=== PATIENT | female | born 1975 | race Two or more races ===

== ENCOUNTER 2018-11-04 18:44 | Emergency (ER) | payer MEDICARE, MEDICAID ==
[~2018-11-04] VITALS: Ht 162.6 cm; Wt 104.0 kg
[2018-11-04 20:26] VITALS: BP 131/97
== END 2018-11-04 20:27 | disposition home or self-care (01) ==
LOC: ER 18:44
DX: M54.5 Low back pain (principal)
CPT/HCPCS: 99283

== ENCOUNTER 2021-03-28 05:20 | Emergency (ER) | payer MEDICAID, MEDICARE ==
[~2021-03-28] VITALS: Ht 162.6 cm; Wt 102.0 kg
[2021-03-28] MEDS ORDERED: IBUP-2028 MT (07:03)
[2021-03-28] MEDS ORDERED: AMOX-494 MT (07:06)
[2021-03-28] MEDS ORDERED: IBUPROFEN 600MG TABLET PO ONE (07:15)
[2021-03-28 07:31] VITALS: BP 148/92
== END 2021-03-28 07:33 | disposition home or self-care (01) ==
LOC: ER 05:20
DX: K08.89 Other specified disorders of teeth and supporting structures (principal)
CPT/HCPCS: 99283

== ENCOUNTER 2021-05-21 22:55 | Emergency (ER) | payer MEDICAID ==
[~2021-05-21] VITALS: Ht 162.6 cm; Wt 109.0 kg
[~2021-05-21 22:55] MED LIST: AMOX-494 MT; IBUP-2028 MT
[2021-05-22 00:11] LABS: CLARITY URINE CLEAR (CLEAR); COLOR URINE YELLOW (YELLOW); KETONES URINE NEGATIVE (NEGATIVE); LEUKOCYTE ESTERASE URINE 2+ (NEGATIVE); NITRITE URINE NEGATIVE (NEGATIVE); OCCULT BLOOD URINE NEGATIVE (NEGATIVE); PROTEIN URINE NEGATIVE (NEGATIVE); SPECIFIC GRAVITY URINE 1.025 (1.005-1.030); UROBILINOGEN URINE 0.2 E.U./dL (0.2-1.0)
[2021-05-22] MEDS ORDERED: CEFTRIAXONE SODIUM 500 MG/VIAL IM SCH (01:31)
[2021-05-22] MEDS ORDERED: LIDOCAINE HCL 1% 10 MG/ML 10ML VIAL IJ SCH (01:45)
[2021-05-22] MEDS ORDERED: METR-167 PO (01:48)
[2021-05-22] MEDS ORDERED: DOXY-326 PO (01:48)
[2021-05-22 02:00] VITALS: BP 122/78
[2021-05-25 04:09] LABS: NEISSERIA GONORRHOEAE NAA Negative (Negative)
== END 2021-05-22 02:00 | disposition home or self-care (01) ==
LOC: ER 22:55
DX: N76.0 Acute vaginitis (principal); N72 Inflammatory disease of cervix uteri; Z87.828 Personal history of other (healed) physical injury and trauma
CPT/HCPCS: 81003; 81025; 87086; 87210; 87491; 87591; 96372; 99283; J0696; J3490; Z7610

== ENCOUNTER 2023-03-19 09:23 | Emergency (ER) | payer MEDICAID, OTHER ==
[~2023-03-19] VITALS: Ht 165.1 cm; Wt 105.0 kg
[~2023-03-19 09:23] MED LIST changes: +DOXY-456 PO; +METR-167 PO
[2023-03-19 09:42] VITALS: BP 131/78; PULSE 92; RESP 16; TEMP 98.6; O2SAT 100
[2023-03-19] MEDS ORDERED: CETI10TA6 PO (10:37)
[2023-03-19] MEDS ORDERED: HYDR453.3 TP (10:37)
== END 2023-03-19 11:01 | disposition home or self-care (01) ==
LOC: ER 09:23
DX: S50.862A Insect bite (nonvenomous) of left forearm, initial encounter (principal); S50.861A Insect bite (nonvenomous) of right forearm, initial encounter; E11.9 Type 2 diabetes mellitus without complications; W57.XXXA Bitten or stung by nonvenomous insect and other nonvenomous arthropods, initial encounter; Y93.89 Activity, other specified; Y92.89 Other specified places as the place of occurrence of the external cause; Y99.8 Other external cause status
CPT/HCPCS: 99282

== ENCOUNTER 2023-07-31 09:21 | Emergency (ER) | payer MEDICAID, OTHER ==
[~2023-07-31] VITALS: Ht 162.6 cm; Wt 105.0 kg
[~2023-07-31 09:21] MED LIST changes: +CETI10TA6 PO; +HYDR453.3 TP
[2023-07-31 09:37] VITALS: BP 108/83; PULSE 80; RESP 16; TEMP 98.2; O2SAT 100
== END 2023-07-31 10:11 | disposition home or self-care (01) ==
LOC: ER 09:21
DX: T19.2XXA Foreign body in vulva and vagina, initial encounter (principal); E11.9 Type 2 diabetes mellitus without complications; X58.XXXA Exposure to other specified factors, initial encounter; Y93.89 Activity, other specified; Y92.89 Other specified places as the place of occurrence of the external cause; Y99.8 Other external cause status
CPT/HCPCS: 81025; 99282

== ENCOUNTER 2023-11-18 17:50 | Emergency (ER) | payer OTHER ==
[~2023-11-18] VITALS: Ht 162.6 cm; Wt 107.0 kg
[2023-11-18 18:00] VITALS: BP 141/85; PULSE 83; RESP 18; TEMP 98.5; O2SAT 98
[2023-11-18] MEDS ORDERED: NAPR500T7 MT (19:47)
[2023-11-18] MEDS ORDERED: LIDO1ADH7 TP (19:47)
== END 2023-11-18 20:14 | disposition home or self-care (01) ==
LOC: ER 17:50
DX: M25.562 Pain in left knee (principal); E11.9 Type 2 diabetes mellitus without complications; Z79.899 Other long term (current) drug therapy
CPT/HCPCS: 99281

== ENCOUNTER 2024-11-14 19:54 | Emergency (ER) | payer OTHER ==
[~2024-11-14] VITALS: Ht 162.6 cm; Wt 112.0 kg
[~2024-11-14 19:54] MED LIST changes: -DOXY-456 PO; +DOXY-461 PO; +LIDO1ADH7 TP; +NAPR-1486 MT
[2024-11-14 20:00] VITALS: O2SAT 100
[2024-11-14] MEDS: KETOROLAC 30MG/ML VIAL IM ONE (22:09)
[2024-11-14] MEDS ORDERED: ACET-2708 MT (22:31)
[2024-11-14 22:45] VITALS: BP 118/81; PULSE 103; RESP 18; TEMP 37.2; O2SAT 100
== END 2024-11-14 22:49 | disposition home or self-care (01) ==
LOC: ER 19:54
DX: M65.90 Unspecified synovitis and tenosynovitis, unspecified site (principal); E11.9 Type 2 diabetes mellitus without complications; Z68.41 Body mass index [BMI] 40.0-44.9, adult; Z79.1 Long term (current) use of non-steroidal anti-inflammatories (NSAID); Z79.899 Other long term (current) drug therapy
CPT/HCPCS: 73110; 29125; 96372; 99283; J1885; Z7610

== ENCOUNTER 2024-11-27 09:15 | Emergency (ER) | payer OTHER ==
[~2024-11-27] VITALS: Ht 162.6 cm; Wt 115.0 kg
[~2024-11-27 09:15] MED LIST changes: +ACET-2708 MT
[2024-11-27 09:22] VITALS: O2SAT 100
[2024-11-27] MEDS ORDERED: CELE-116 MT (10:34)
[2024-11-27] MEDS ORDERED: METH4TAB95 MT (10:34)
[2024-11-27] MEDS: KETOROLAC 30MG/ML VIAL IM ONE (10:45)
[2024-11-27] MEDS: DEXAMETHASONE 4MG TABLET PO ONE (10:46)
[2024-11-27 10:58] VITALS: BP 145/82; PULSE 74; RESP 16; TEMP 36.9; O2SAT 100
== END 2024-11-27 10:59 | disposition home or self-care (01) ==
LOC: ER 09:15
DX: G56.02 Carpal tunnel syndrome, left upper limb (principal); E11.41 Type 2 diabetes mellitus with diabetic mononeuropathy; Z79.1 Long term (current) use of non-steroidal anti-inflammatories (NSAID)
CPT/HCPCS: 99283; 73110; 96372; J1885; J8540

== ENCOUNTER 2025-03-14 20:13 | Emergency (ER) | payer OTHER ==
[~2025-03-14] VITALS: Ht 167.6 cm; Wt 114.0 kg
[~2025-03-14 20:13] MED LIST changes: +CELE-116 MT; +METH4TAB95 MT
[2025-03-14 20:22] VITALS: O2SAT 99
[2025-03-14 20:25] VITALS: TEMP 36.6; O2SAT 99
[2025-03-14] MEDS ORDERED: DEXAMETHASONE 2MG TABLET PO ONE (21:15)
[2025-03-14 22:01] VITALS: BP 128/76; PULSE 105; RESP 20
[2025-03-14] MEDS: KETOROLAC 30MG/ML VIAL IM ONE (22:01)
[2025-03-14] MEDS: DEXAMETHASONE 4MG TABLET PO SCH (22:02)
[2025-03-14] MEDS: SUMATRIPTAN SUCCINATE 6MG/0.5ML VIAL SUBCUT ONE (22:02)
[2025-03-14] MEDS: PROCHLORPERAZINE MALEATE 10MG TABLET PO ONE (22:02)
[2025-03-14] MEDS: DIPHENHYDRAMINE 12.5MG/5ML UDC PO ONE (22:02)
[2025-03-14] MEDS ORDERED: SUMA11AE2 BOTHNSTRLS (22:11)
[2025-03-14] MEDS ORDERED: KETO10TA2 MT (22:11)
[2025-03-14] MEDS ORDERED: SUMA100T16 MT (22:11)
== END 2025-03-14 20:42 | disposition home or self-care (01) ==
LOC: ER 20:13
DX: G43.909 Migraine, unspecified, not intractable, without status migrainosus (principal); Z79.1 Long term (current) use of non-steroidal anti-inflammatories (NSAID); Z79.899 Other long term (current) drug therapy
CPT/HCPCS: 99284; 96372; J1885; J8540; Q0164; Q0163; J3030